=== PATIENT | female | born 1995 | race Caucasian/White ===

== ENCOUNTER 2017-04-14 17:20 | Emergency (ER) | payer OTHER ==
[~2017-04-14] VITALS: Ht 154.9 cm; Wt 50.0 kg
[~2017-04-14 17:20] MED LIST: ALPR0.25 PO
[2017-04-14 17:48] VITALS: Ht 154.9 cm; Wt 50.0 kg
[2017-04-14] MEDS ORDERED: HYDR-906 PO (20:44)
[2017-04-14] MEDS ORDERED: IBUP-1542 PO (20:44)
[2017-04-14] MEDS ORDERED: CYCL-319 PO (20:44)
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
== END 2017-04-14 20:52 | disposition home or self-care (01) ==
LOC: FTE 17:20
DX: S39.012A Strain of muscle, fascia and tendon of lower back, initial encounter (principal); S16.1XXA Strain of muscle, fascia and tendon at neck level, initial encounter; V49.50XA Passenger injured in collision with unspecified motor vehicles in traffic accident, initial encounter
CPT/HCPCS: 99284